=== PATIENT | female | born 1990 | race Caucasian/White ===

== ENCOUNTER 2018-01-14 14:27 | Emergency (ER) | payer OTHER ==
[~2018-01-14] VITALS: Ht 170.2 cm; Wt 59.0 kg
[2018-01-14] MEDS ORDERED: IBUPROFEN 400 MG TAB PO ONE (15:00)
[2018-01-14 15:20] VITALS: BP 139/83
== END 2018-01-14 15:22 | disposition home or self-care (01) ==
LOC: FSED 14:27
DX: G44.219 Episodic tension-type headache, not intractable (principal)
CPT/HCPCS: 99282